=== PATIENT | female | born 1950 | race Caucasian/White ===

== ENCOUNTER 2017-11-15 08:56 | Emergency (ER) | payer MEDICARE, MEDICAID ==
[~2017-11-15] VITALS: Ht 545.9 cm; Wt 41.5 kg
[~2017-11-15 08:56] MED LIST: AMLO2.5T12 PO; CALCIUM PO; CHOL200026 PO; GING1POW PO; IPRA4AER IH; LISI40TA4 PO; OMEG-113 PO; PANT40TA4 PO; SUMA25TA35 PO; TURM538C PO; VITC500T PO; [UNRECOGNIZED DRUG - OTHER] PO
[2017-11-15 10:46] VITALS: BP 105/68
== END 2017-11-15 10:45 | disposition home or self-care (01) ==
LOC: ER 08:56
DX: K91.1 Postgastric surgery syndromes (principal); R19.7 Diarrhea, unspecified; F17.200 Nicotine dependence, unspecified, uncomplicated; I10 Essential (primary) hypertension; M19.90 Unspecified osteoarthritis, unspecified site; Z98.84 Bariatric surgery status; Z85.3 Personal history of malignant neoplasm of breast; Z79.899 Other long term (current) drug therapy
CPT/HCPCS: 99284

== ENCOUNTER 2017-11-15 20:29 | Inpatient (IN) | payer MEDICARE, MEDICAID ==
[~2017-11-15] VITALS: Ht 162.6 cm; Wt 41.2 kg
[2017-11-15] MEDS ORDERED: naloxone 2mg/2ml inj IM STA (20:56)
[2017-11-15] MEDS ORDERED: normal saline 1000ML IV soln IV ONE ×2 (21:00→22:40)
[2017-11-15 22:00] LABS: BASOPHILS % (AUTO) 0.1 % (0-1); EOSINOPHILS % (AUTO) 0 % (0-6); HEMATOCRIT 37.9 % (35.0-45.0); HEMOGLOBIN 12.2 g/dl (12.0-16.0); LYMPHOCYTES # (AUTO) 0.5 X10'3 (1.1-4.8); LYMPHOCYTES % (AUTO) 1.9 % (21-51); MEAN CORPUSCULAR HGB CONC 32.2 % (33.0-36.5); MEAN CORPUSCULAR VOLUME 93.1 FL (78-98); MEAN PLATELET VOLUME 7.2 FL (7.4-10.4); MONOCYTES # (AUTO) 0.9 X10'3 (0-0.9); MONOCYTES % (AUTO) 3.8 % (2-12); NEUTROPHILS # (AUTO) 22.7 X10'3 (1.8-7.7); NEUTROPHILS % (AUTO) 94.2 % (42-75); PLATELET COUNT 553 X10'3 (140-440); RED BLOOD COUNT 4.06 X10'6 (4.20-5.60); RED CELL DISTRIBUTION WIDTH 16.5 % (11.5-14.5); WHITE BLOOD COUNT 24.1 X10'3 (4.5-11.0)
[2017-11-15 22:08] LABS: INR 0.9 INR; PROTHROMBIN TIME 9.7 SECONDS (9.0-12.0)
[2017-11-15] MEDS ORDERED: levoFLOXACIN-Levaquin 750MG/D5 150 ML IV ONE (22:10)
[2017-11-15 22:21] LABS: ALANINE AMINOTRANSFERASE 101 U/L (12-78); ALBUMIN/GLOBULIN RATIO 0.7 (1.1-1.5); ALKALINE PHOSPHATASE 132 IU/L (46-116); ANION GAP 25 (8-16); ASPARTATE AMINO TRANSFERASE 191 U/L (10-37); BILIRUBIN,TOTAL 0.5 MG/DL (0.1-1.0); BLOOD UREA NITROGEN 83 MG/DL (7-18); BUN/CREATININE RATIO 37.4 (6.6-38.0); CALCIUM 7.7 MG/DL (8.5-10.1); CHLORIDE 98 MMOL/L (99-107); CREATININE 2.22 MG/DL (0.40-0.90); ETHANOL < 0.010 GM/DL (0.0-0.010); GLUCOSE 118 MG/DL (70-104); SODIUM 132 MMOL/L (135-145); TOTAL PROTEIN 7.3 G/DL (6.4-8.2); eGFR 22 ML/MIN
[2017-11-15 22:28] LABS: POTASSIUM 5.6 MMOL/L (3.5-5.1)
[2017-11-15 22:46] LABS: CLARITY,URINE SLIGHTLY CLOUDY (Clear); COLOR,URINE YELLOW (Yellow); GLUCOSE, URINE NEGATIVE (Neg); KETONES,URINE TRACE mg/dl (Neg); LEUKOCYTE ESTERASE ,URINE SMALL (Neg); NITRITES, URINE POSITIVE (Neg); OCCULT BLOOD,URINE MODERATE (Neg); PROTEIN,URINE 30 mg/dl (Neg); UROBILINOGEN,URINE 0.2 E.U/dL (0.2-1.0)
[2017-11-15 22:56] LABS: ABG BASE EXCESS -25.2 mmol/L (-2.0-3.0); ABG HCO3 4.6 mmol/L (22.0-26.0); ABG OXYGEN SATURATION 95.5 % (95-98); ABG PCO2 (T) 18.8 mmHg (32.0-45.0); ABG PO2 (T) 168.9 mmHg (83-108); FCOHb 0.3 % (0.5-1.5); FLOW 4 L/min; FMetHb 0.1 % (0.3-1.12); FO2Hb 95.1 % (94-100); PATIENT TEMPERATURE 35.8; TOTAL HEMOGLOBIN 10.1 G/dl (12.0-16.0)
[2017-11-15 23:05] LABS: URINE AMPHETAMINE SCREEN NEGATIVE (Neg); URINE BARBITUATE SCREEN NEGATIVE (Neg); URINE BENZODIAZEPINES SCREEN NEGATIVE (Neg); URINE CANNABINOID SCREEN NEGATIVE (Neg); URINE COCAINE SCREEN NEGATIVE (Neg); URINE METHADONE SCREEN NEGATIVE (Neg); URINE OPIATE SCREEN POSITIVE (Neg); URINE PHENCYCLIDINE SCREEN NEGATIVE (Neg)
[2017-11-15] MEDS ORDERED: sodium bicarbonate (8.4%) inj. 150 MEQ in sodium chloride 0.45% 1,000 ML IV SCH (23:05)
[2017-11-15 23:06] LABS: UA COLLECTION TYPE FOLEY CATH
[2017-11-15 23:08] LABS: WBC,URINE 50-100 /HPF (0-4)
[2017-11-15 23:09] LABS: BACTERIA,URINE 4+ /HPF (Neg); SQUAMOUS EPITHELIAL CELL,UR FEW /LPF (FEW); WBC CLUMPS,URINE FEW /HPF (NEGATIVE)
[2017-11-15] MEDS ORDERED: ipratropium/albuterol 3ml nebule NEB PRN (23:50)
[2017-11-15] MEDS ORDERED: acetaminophen 325mg tablet PO PRN (23:50)
[2017-11-15] MEDS ORDERED: ondansetron/PF 4mg/2ml inj IV PRN (23:50)
[2017-11-15] MEDS ORDERED: acetaminophen 650mg rectal suppository RC PRN (23:50)
[2017-11-15] MEDS ORDERED: sodium bicarbonate (8.4%) 1 mEq/ml syringe IV ONE (23:55)
[2017-11-15] MEDS ORDERED: vancomycin/NS 1 GM ADD-VANTAGE 250 ML IV ONE (23:55)
[2017-11-16] VITALS (22 sets, daily range): BP systolic 91–139; BP diastolic 52–89
[2017-11-16] MEDS ORDERED: sodium bicarbonate (8.4%) inj. 150 MEQ in sodium chloride 0.45% 1,000 ML IV SCH ×2
[2017-11-16] MEDS ORDERED: cefepime 1GM/NS ADD-VANTAGE 100 ML IV ONE ×2 (00:15)
[2017-11-16] MEDS ORDERED: vancomycin/NS 1 GM ADD-VANTAGE 250 ML IV ONE (00:15)
[2017-11-16 00:40] LABS: TROPONIN I 1.07 NG/ML (0.0-0.05)
[2017-11-16] MEDS ORDERED: heparin 10,000 units/1 ML INJ IV ONE (00:40)
[2017-11-16 02:10] LABS: BASOPHILS % (AUTO) 0 % (0-1); EOSINOPHILS % (AUTO) 0 % (0-6); HEMATOCRIT 32.5 % (35.0-45.0); HEMOGLOBIN 10.6 g/dl (12.0-16.0); LYMPHOCYTES # (AUTO) 0.4 X10'3 (1.1-4.8); LYMPHOCYTES % (AUTO) 2.1 % (21-51); MEAN CORPUSCULAR HEMOGLOBIN 30.5 PG (27.0-31.0); MEAN CORPUSCULAR HGB CONC 32.6 % (33.0-36.5); MEAN CORPUSCULAR VOLUME 93.6 FL (78-98); MEAN PLATELET VOLUME 6.9 FL (7.4-10.4); MONOCYTES # (AUTO) 1.1 X10'3 (0-0.9); MONOCYTES % (AUTO) 6.4 % (2-12); NEUTROPHILS % (AUTO) 91.5 % (42-75); PLATELET COUNT 499 X10'3 (140-440); RED BLOOD COUNT 3.48 X10'6 (4.20-5.60); RED CELL DISTRIBUTION WIDTH 16.4 % (11.5-14.5); WHITE BLOOD COUNT 17.5 X10'3 (4.5-11.0)
[2017-11-16] MEDS: famotidine/PF 10 mg/ml inj IV SCH ×3 (02:12→20:44)
[2017-11-16 02:25] LABS: INR 0.9 INR; PARTIAL THROMBOPLASTIN TIME 38 SECONDS (22-32); PROTHROMBIN TIME 9.5 SECONDS (9.0-12.0)
[2017-11-16] MEDS ORDERED: dextrose 50%-water 50ml dispensing syringe IV ONE (02:49)
[2017-11-16] MEDS ORDERED: dextrose 50%-water 50ml dispensing syringe IV PRN ×2 (02:50)
[2017-11-16] MEDS ORDERED: dextrose ORAL solution 15 GM/59 ML bottle PO PRN ×2 (02:50)
[2017-11-16] MEDS ORDERED: aspirin 81mg tab.chew PO ONE (02:50)
[2017-11-16] MEDS ORDERED: glucagon, human recombinant 1mg kit SUBCUT PRN (02:50)
[2017-11-16] MEDS: sodium bicarbonate (8.4%) inj. 150 MEQ in sodium chloride 0.45% 1,000 ML IV SCH ×2 (02:55→13:01)
[2017-11-16 03:12] LABS: ALANINE AMINOTRANSFERASE 75 U/L (12-78); ALBUMIN 2.4 G/DL (3.4-5.0); ALBUMIN/GLOBULIN RATIO 0.7 (1.1-1.5); ALKALINE PHOSPHATASE 116 IU/L (46-116); ANION GAP 24 (8-16); ASPARTATE AMINO TRANSFERASE 169 U/L (10-37); BILIRUBIN,TOTAL 0.4 MG/DL (0.1-1.0); BLOOD UREA NITROGEN 71 MG/DL (7-18); BUN/CREATININE RATIO 47.3 (6.6-38.0); CALCIUM 6.1 MG/DL (8.5-10.1); CHLORIDE 105 MMOL/L (99-107); GLUCOSE 87 MG/DL (70-104); MAGNESIUM 1.8 MG/DL (1.5-2.4); PHOSPHORUS 8.4 MG/DL (2.3-4.5); POTASSIUM 4.7 MMOL/L (3.5-5.1); SODIUM 137 MMOL/L (135-145); VANCOMYCIN,RANDOM 0.6 UG/ML; eGFR 35 ML/MIN
[2017-11-16 03:17] LABS: TOTAL CARBON DIOXIDE 7.7 MMOL/L (24-32)
[2017-11-16] MEDS ORDERED: sodium bicarbonate (8.4%) 1 mEq/ml syringe IV ONE ×2 (03:25→05:15)
[2017-11-16 05:01] LABS: ABG BASE EXCESS -17.3 mmol/L (-2.0-3.0); ABG HCO3 8.4 mmol/L (22.0-26.0); ABG OXYGEN SATURATION 94.5 % (95-98); ABG PCO2 (T) 19.7 mmHg (32.0-45.0); ABG PH (T) 7.242 (7.350-7.450); ABG PO2 (T) 101.4 mmHg (83-108); ALLEN'S TEST Positive; FCOHb 0.2 % (0.5-1.5); FMetHb 0.2 % (0.3-1.12); FO2Hb 94.1 % (94-100); PATIENT TEMPERATURE 36.2; RESPIRATORY RATE (OBSERVED) 20 b/min
[2017-11-16] MEDS ORDERED: calcium chloride inj. 1,000 MG in normal saline 100ml IV soln 90 ML IV ONE (06:15)
[2017-11-16 07:13] LABS: ALBUMIN 2.2 G/DL (3.4-5.0); ANION GAP 24 (8-16); BLOOD UREA NITROGEN 69 MG/DL (7-18); BUN/CREATININE RATIO 46.9 (6.6-38.0); CALCIUM 6.2 MG/DL (8.5-10.1); CHLORIDE 106 MMOL/L (99-107); CREATININE 1.47 MG/DL (0.40-0.90); GLUCOSE 135 MG/DL (70-104); PHOSPHORUS 6.9 MG/DL (2.3-4.5); POTASSIUM 4.3 MMOL/L (3.5-5.1); SODIUM 139 MMOL/L (135-145); eGFR 36 ML/MIN
[2017-11-16 07:19] LABS: TOTAL CARBON DIOXIDE 8.9 MMOL/L (24-32); TROPONIN I 5.18 NG/ML (0.0-0.05)
[2017-11-16] MEDS ORDERED: heparin, porcine 5000 units/ml vial SQ SCH (08:00)
[2017-11-16] MEDS ORDERED: cefepime 1GM/NS ADD-VANTAGE 100 ML IV SCH (08:00)
[2017-11-16] MEDS: aspirin 81mg tab.chew PO SCH (08:30)
[2017-11-16 09:28] LABS: C DIFF ANTIGEN NEGATIVE (NEGATIVE); C DIFF SPECIMEN=DIARRHEA? ACCEPTABLE; C DIFFICILE TOXINS A&B NEGATIVE (Neg)
[2017-11-16 11:21] LABS: ANION GAP 27 (8-16); CHLORIDE 107 MMOL/L (99-107); GLUCOSE 76 MG/DL (70-104); POTASSIUM 3.5 MMOL/L (3.5-5.1); SODIUM 146 MMOL/L (135-145)
[2017-11-16 11:22] LABS: ALBUMIN 2.1 G/DL (3.4-5.0); BLOOD UREA NITROGEN 62 MG/DL (7-18); BUN/CREATININE RATIO 52.1 (6.6-38.0); CALCIUM 6.7 MG/DL (8.5-10.1); CREATININE 1.19 MG/DL (0.40-0.90); PHOSPHORUS 4.9 MG/DL (2.3-4.5); eGFR 46 ML/MIN
[2017-11-16 11:23] LABS: TOTAL CARBON DIOXIDE 11.7 MMOL/L (24-32); TROPONIN I 11.77 NG/ML (0.0-0.05)
[2017-11-16 13:00] LABS: CHOL/HDL RATIO 2.3 (0.00-4.99); CHOLESTEROL 96 MG/DL (0-200); HDL CHOLESTEROL 41 MG/DL (35-60); LDL CHOLESTEROL 40 MG/DL (50-100); TRIGLYCERIDES 111 MG/DL (20-135)
[2017-11-16] MEDS: heparin 10,000 units/1 ML INJ IV PRN (16:44)
[2017-11-17] VITALS (21 sets, daily range): BP systolic 112–144; BP diastolic 60–95
[2017-11-17] MEDS: cefepime 1GM/NS ADD-VANTAGE 100 ML IV SCH ×2 (00:18→23:59)
[2017-11-17 00:35] LABS: ALANINE AMINOTRANSFERASE 55 U/L (12-78); ALBUMIN 1.8 G/DL (3.4-5.0); ALBUMIN/GLOBULIN RATIO 0.6 (1.1-1.5); ALKALINE PHOSPHATASE 84 IU/L (46-116); ANION GAP 18 (8-16); ASPARTATE AMINO TRANSFERASE 144 U/L (10-37); BILIRUBIN,TOTAL 0.4 MG/DL (0.1-1.0); BLOOD UREA NITROGEN 34 MG/DL (7-18); BUN/CREATININE RATIO 42.5 (6.6-38.0); CALCIUM 6.5 MG/DL (8.5-10.1); CHLORIDE 114 MMOL/L (99-107); GLUCOSE 136 MG/DL (70-104); MAGNESIUM 1.7 MG/DL (1.5-2.4); TOTAL CARBON DIOXIDE 23.1 MMOL/L (24-32); eGFR 72 ML/MIN
[2017-11-17 00:45] LABS: SODIUM 155 MMOL/L (135-145)
[2017-11-17] MEDS ORDERED: magnesium 4gm in 100ml NS 100 ML IV PRN (00:50)
[2017-11-17] MEDS ORDERED: potassium Cl 20 mEq SR tablet PO PRN ×2 (00:50)
[2017-11-17] MEDS: sodium bicarbonate (8.4%) inj. 150 MEQ in sodium chloride 0.45% 1,000 ML IV SCH (00:53)
[2017-11-17] MEDS ORDERED: sodium bicarbonate (8.4%) inj. 100 MEQ in dextrose 5%-water 1,000 ML IV SCH (00:55)
[2017-11-17] MEDS: magnesium 1gm/100ml D5W IVPB 100 ML IV PRN ×2 (00:58→03:24)
[2017-11-17] MEDS: potassium Cl 40MEQ/250ML bag 250 ML IV PRN ×2 (01:25→03:50)
[2017-11-17] MEDS: vancomycin/NS 1 GM ADD-VANTAGE 250 ML IV SCH (03:13)
[2017-11-17 03:51] LABS: BASOPHILS % (AUTO) 0.1 % (0-1); EOSINOPHILS % (AUTO) 0 % (0-6); HEMOGLOBIN 8.9 g/dl (12.0-16.0); LYMPHOCYTES # (AUTO) 0.6 X10'3 (1.1-4.8); LYMPHOCYTES % (AUTO) 9.1 % (21-51); MEAN CORPUSCULAR HEMOGLOBIN 29.9 PG (27.0-31.0); MEAN CORPUSCULAR VOLUME 90.5 FL (78-98); MEAN PLATELET VOLUME 6.5 FL (7.4-10.4); MONOCYTES # (AUTO) 0.8 X10'3 (0-0.9); MONOCYTES % (AUTO) 11.2 % (2-12); NEUTROPHILS # (AUTO) 5.5 X10'3 (1.8-7.7); NEUTROPHILS % (AUTO) 79.6 % (42-75); PLATELET COUNT 390 X10'3 (140-440); RED BLOOD COUNT 2.99 X10'6 (4.20-5.60); RED CELL DISTRIBUTION WIDTH 16.3 % (11.5-14.5); WHITE BLOOD COUNT 6.9 X10'3 (4.5-11.0)
[2017-11-17 04:06] LABS: ALANINE AMINOTRANSFERASE 55 U/L (12-78); ALBUMIN 1.9 G/DL (3.4-5.0); ALBUMIN/GLOBULIN RATIO 0.6 (1.1-1.5); ALKALINE PHOSPHATASE 83 IU/L (46-116); ANION GAP 9 (8-16); ASPARTATE AMINO TRANSFERASE 139 U/L (10-37); BILIRUBIN,TOTAL 0.3 MG/DL (0.1-1.0); BLOOD UREA NITROGEN 31 MG/DL (7-18); BUN/CREATININE RATIO 41.3 (6.6-38.0); CALCIUM 6.7 MG/DL (8.5-10.1); CHLORIDE 117 MMOL/L (99-107); CREATININE 0.75 MG/DL (0.40-0.90); GLUCOSE 151 MG/DL (70-104); MAGNESIUM 2.2 MG/DL (1.5-2.4); PHOSPHORUS 1.9 MG/DL (2.3-4.5); POTASSIUM 3.7 MMOL/L (3.5-5.1); SODIUM 153 MMOL/L (135-145); TOTAL CARBON DIOXIDE 27.1 MMOL/L (24-32); TOTAL PROTEIN 4.9 G/DL (6.4-8.2); VANCOMYCIN,RANDOM 5.9 UG/ML; eGFR 78 ML/MIN
[2017-11-17 04:36] LABS: TROPONIN I 10.11 NG/ML (0.0-0.05)
[2017-11-17] MEDS ORDERED: sodium phosphate inj. 30 MMOL in dextrose 5%-water 250 ML IV PRN (06:40)
[2017-11-17] MEDS ORDERED: Neutra Phos packet PO PRN (06:40)
[2017-11-17] MEDS ORDERED: sodium phosphate inj. 15 MMOL in dextrose 5%-water 150 ML IV PRN (06:40)
[2017-11-17] MEDS: aspirin 81mg tab.chew PO SCH (08:30)
[2017-11-17] MEDS: potassium phosphate inj 15 MMOL in dextrose 5%-water 150 ML IV PRN (08:37)
[2017-11-17] MEDS: famotidine/PF 10 mg/ml inj IV SCH ×2 (08:51→20:17)
[2017-11-17] MEDS ORDERED: LORazepam 2 mg/ml vial IV STA (11:13)
[2017-11-17] MEDS ORDERED: LORazepam 2 mg/ml vial ONE (11:19)
[2017-11-17] MEDS ORDERED: LORazepam 2 mg/ml vial IV ONE (11:20)
[2017-11-17] MEDS: dextrose 5%-water 1,000 ML IV SCH ×2 (12:41→23:59)
[2017-11-17 14:46] LABS: BASOPHILS % (AUTO) 0.3 % (0-1); EOSINOPHILS % (AUTO) 0 % (0-6); HEMATOCRIT 25.7 % (35.0-45.0); HEMOGLOBIN 8.5 g/dl (12.0-16.0); MEAN CORPUSCULAR HEMOGLOBIN 29.9 PG (27.0-31.0); MEAN CORPUSCULAR HGB CONC 33.1 % (33.0-36.5); MEAN CORPUSCULAR VOLUME 90.2 FL (78-98); MEAN PLATELET VOLUME 6.6 FL (7.4-10.4); MONOCYTES # (AUTO) 0.8 X10'3 (0-0.9); MONOCYTES % (AUTO) 12.2 % (2-12); NEUTROPHILS % (AUTO) 73.5 % (42-75); PLATELET COUNT 358 X10'3 (140-440); RED BLOOD COUNT 2.84 X10'6 (4.20-5.60); RED CELL DISTRIBUTION WIDTH 16.6 % (11.5-14.5); WHITE BLOOD COUNT 6.8 X10'3 (4.5-11.0)
[2017-11-17 14:55] LABS: ALBUMIN 1.9 G/DL (3.4-5.0); ANION GAP 8 (8-16); BLOOD UREA NITROGEN 18 MG/DL (7-18); BUN/CREATININE RATIO 26.9 (6.6-38.0); CALCIUM 6.7 MG/DL (8.5-10.1); CHLORIDE 115 MMOL/L (99-107); CREATININE 0.67 MG/DL (0.40-0.90); GLUCOSE 176 MG/DL (70-104); MAGNESIUM 2.3 MG/DL (1.5-2.4); SODIUM 153 MMOL/L (135-145); eGFR 88 ML/MIN
[2017-11-17 15:36] LABS: PHOSPHORUS 1.8 MG/DL (2.3-4.5)
[2017-11-17] MEDS: heparin 10,000 units/1 ML INJ IV PRN (16:30)
[2017-11-17] MEDS: lactobacillus rhamnosus 10,000 MMU CELLS/CAPSULE PO SCH (20:00)
[2017-11-18] VITALS (24 sets, daily range): BP systolic 122–165; BP diastolic 74–104
[2017-11-18 01:26] LABS: PROTHROMBIN TIME 9.9 SECONDS (9.0-12.0)
[2017-11-18] MEDS: vancomycin/NS 1 GM ADD-VANTAGE 250 ML IV SCH (02:15)
[2017-11-18 03:22] LABS: BASOPHILS % (AUTO) 0.2 % (0-1); EOSINOPHILS # (AUTO) 0.1 X10'3 (0-0.9); EOSINOPHILS % (AUTO) 1.4 % (0-6); HEMATOCRIT 23.5 % (35.0-45.0); HEMOGLOBIN 7.7 g/dl (12.0-16.0); LYMPHOCYTES # (AUTO) 1.3 X10'3 (1.1-4.8); LYMPHOCYTES % (AUTO) 20.6 % (21-51); MEAN CORPUSCULAR HEMOGLOBIN 30.1 PG (27.0-31.0); MEAN CORPUSCULAR HGB CONC 32.9 % (33.0-36.5); MEAN CORPUSCULAR VOLUME 91.4 FL (78-98); MEAN PLATELET VOLUME 6.6 FL (7.4-10.4); MONOCYTES # (AUTO) 0.6 X10'3 (0-0.9); MONOCYTES % (AUTO) 10.1 % (2-12); NEUTROPHILS # (AUTO) 4.3 X10'3 (1.8-7.7); NEUTROPHILS % (AUTO) 67.7 % (42-75); PLATELET COUNT 298 X10'3 (140-440); RED BLOOD COUNT 2.57 X10'6 (4.20-5.60); RED CELL DISTRIBUTION WIDTH 16.9 % (11.5-14.5); WHITE BLOOD COUNT 6.3 X10'3 (4.5-11.0)
[2017-11-18 03:46] LABS: ANION GAP 5 (8-16); BLOOD UREA NITROGEN 9 MG/DL (7-18); BUN/CREATININE RATIO 14.5 (6.6-38.0); CALCIUM 6.1 MG/DL (8.5-10.1); CHLORIDE 112 MMOL/L (99-107); CREATININE 0.62 MG/DL (0.40-0.90); GLUCOSE 143 MG/DL (70-104); MAGNESIUM 2.1 MG/DL (1.5-2.4); PHOSPHORUS 3.6 MG/DL (2.3-4.5); POTASSIUM 3.2 MMOL/L (3.5-5.1); SODIUM 149 MMOL/L (135-145); TOTAL CARBON DIOXIDE 31.6 MMOL/L (24-32); TOTAL PROTEIN 4.7 G/DL (6.4-8.2); eGFR > 90 ML/MIN
[2017-11-18 03:47] LABS: ALANINE AMINOTRANSFERASE 53 U/L (12-78); ALBUMIN 1.8 G/DL (3.4-5.0); ALBUMIN/GLOBULIN RATIO 0.6 (1.1-1.5); ALKALINE PHOSPHATASE 66 IU/L (46-116); ASPARTATE AMINO TRANSFERASE 99 U/L (10-37)
[2017-11-18] MEDS: potassium Cl 40MEQ/250ML bag 250 ML IV PRN (04:33)
[2017-11-18 04:41] LABS: BILIRUBIN,TOTAL 0.1 MG/DL (0.1-1.0)
[2017-11-18] MEDS: lactobacillus rhamnosus 10,000 MMU CELLS/CAPSULE PO SCH ×2 (08:00→20:00)
[2017-11-18] MEDS: famotidine/PF 10 mg/ml inj IV SCH ×2 (08:26→20:12)
[2017-11-18] MEDS: heparin 10,000 units/1 ML INJ IV PRN (08:29)
[2017-11-18] MEDS: aspirin 81mg tab.chew PO SCH (08:30)
[2017-11-18 13:31] LABS: ALBUMIN 1.9 G/DL (3.4-5.0); ANION GAP 4 (8-16); BLOOD UREA NITROGEN 7 MG/DL (7-18); BUN/CREATININE RATIO 12.1 (6.6-38.0); CHLORIDE 107 MMOL/L (99-107); CREATININE 0.58 MG/DL (0.40-0.90); GLUCOSE 273 MG/DL (70-104); POTASSIUM 3.7 MMOL/L (3.5-5.1); SODIUM 142 MMOL/L (135-145); TOTAL CARBON DIOXIDE 31.1 MMOL/L (24-32); eGFR > 90 ML/MIN
[2017-11-18] MEDS ORDERED: calcium chloride inj. 1,000 MG in normal saline 100ml IV soln 90 ML IV ONE (14:00)
[2017-11-18 14:16] LABS: % IRON SATURATION 39 % (11-46); IRON 70 UG/DL (49-151); TOTAL IRON BINDING CAPACITY 179 UG/DL (259-388)
[2017-11-18 15:31] LABS: OCCULT BLOOD STOOL NEGATIVE (Neg)
[2017-11-18] MEDS: dextrose 5%-water 1,000 ML IV SCH (17:46)
[2017-11-19] VITALS (27 sets, daily range): BP systolic 135–162; BP diastolic 80–101
[2017-11-19] MEDS: cefepime 1GM/NS ADD-VANTAGE 100 ML IV SCH
[2017-11-19] MEDS: morphine 4 MG/ML inj SYRINge IV PRN ×3 (00:18→17:05)
[2017-11-19] MEDS ORDERED: VANCOMYCIN LEVEL IV ONE (01:30)
[2017-11-19 01:35] LABS: BASOPHILS % (AUTO) 0.5 % (0-1); EOSINOPHILS # (AUTO) 0.1 X10'3 (0-0.9); EOSINOPHILS % (AUTO) 1.4 % (0-6); HEMATOCRIT 25.3 % (35.0-45.0); HEMOGLOBIN 8.4 g/dl (12.0-16.0); LYMPHOCYTES # (AUTO) 1.4 X10'3 (1.1-4.8); LYMPHOCYTES % (AUTO) 17.6 % (21-51); MEAN CORPUSCULAR HEMOGLOBIN 30.7 PG (27.0-31.0); MEAN CORPUSCULAR VOLUME 93.1 FL (78-98); MEAN PLATELET VOLUME 6.8 FL (7.4-10.4); MONOCYTES # (AUTO) 0.6 X10'3 (0-0.9); MONOCYTES % (AUTO) 7.4 % (2-12); NEUTROPHILS # (AUTO) 5.8 X10'3 (1.8-7.7); NEUTROPHILS % (AUTO) 73.1 % (42-75); PLATELET COUNT 269 X10'3 (140-440); RED BLOOD COUNT 2.72 X10'6 (4.20-5.60); RED CELL DISTRIBUTION WIDTH 15.3 % (11.5-14.5); WHITE BLOOD COUNT 7.9 X10'3 (4.5-11.0)
[2017-11-19 01:42] LABS: PROTHROMBIN TIME 9.9 SECONDS (9.0-12.0)
[2017-11-19 01:47] LABS: ALANINE AMINOTRANSFERASE 61 U/L (12-78); ALBUMIN/GLOBULIN RATIO 0.7 (1.1-1.5); ALKALINE PHOSPHATASE 77 IU/L (46-116); ANION GAP 3 (8-16); ASPARTATE AMINO TRANSFERASE 78 U/L (10-37); BILIRUBIN,TOTAL 0.3 MG/DL (0.1-1.0); BLOOD UREA NITROGEN 7 MG/DL (7-18); BUN/CREATININE RATIO 12.5 (6.6-38.0); CALCIUM 7.2 MG/DL (8.5-10.1); CHLORIDE 104 MMOL/L (99-107); CREATININE 0.56 MG/DL (0.40-0.90); GLUCOSE 129 MG/DL (70-104); POTASSIUM 3.4 MMOL/L (3.5-5.1); SODIUM 140 MMOL/L (135-145); TOTAL CARBON DIOXIDE 32.7 MMOL/L (24-32); eGFR > 90 ML/MIN
[2017-11-19 01:48] LABS: MAGNESIUM 1.5 MG/DL (1.5-2.4); PHOSPHORUS 1.7 MG/DL (2.3-4.5); VANCOMYCIN,TROUGH 8.1 UG/ML (6.0-14.0)
[2017-11-19] MEDS: vancomycin/NS 1 GM ADD-VANTAGE 250 ML IV SCH (02:13)
[2017-11-19] MEDS: potassium phosphate inj 15 MMOL in dextrose 5%-water 150 ML IV PRN (02:47)
[2017-11-19] MEDS: potassium Cl 40MEQ/250ML bag 250 ML IV PRN (05:38)
[2017-11-19] MEDS: famotidine/PF 10 mg/ml inj IV SCH ×2 (07:43→21:31)
[2017-11-19] MEDS: aspirin 81mg tab.chew PO SCH (07:43)
[2017-11-19] MEDS: lactobacillus rhamnosus 10,000 MMU CELLS/CAPSULE PO SCH ×2 (07:43→21:31)
[2017-11-19] MEDS: heparin 10,000 units/1 ML INJ IV PRN (08:21)
[2017-11-19] MEDS: dextrose 5%-water 1,000 ML IV SCH ×2 (09:55→15:22)
[2017-11-19] MEDS ORDERED: vancomycin/NS 1 GM ADD-VANTAGE 250 ML IV SCH (14:00)
[2017-11-19 14:07] LABS: MAGNESIUM 1.4 MG/DL (1.5-2.4); PHOSPHORUS 2.3 MG/DL (2.3-4.5); POTASSIUM 3.9 MMOL/L (3.5-5.1)
[2017-11-19] MEDS ORDERED: CAFFEINE CITRATE 60 MG/3 ML injection vial IV PRN (15:35)
[2017-11-19] MEDS ORDERED: regadenoson 0.4mg/5ml syringe IV PRN (15:35)
[2017-11-19] MEDS ORDERED: metoprolol tartrate 1mg/ml inj IV PRN (15:35)
[2017-11-19] MEDS ORDERED: nitroGLYCERIN 0.4mg SUBLingual tab SL PRN (15:35)
[2017-11-20] VITALS (31 sets, daily range): BP systolic 108–150; BP diastolic 71–107
[2017-11-20] MEDS: cefepime 1GM/NS ADD-VANTAGE 100 ML IV SCH (00:18)
[2017-11-20] MEDS: dextrose 5%-water 1,000 ML IV SCH ×2 (00:19→17:10)
[2017-11-20 02:40] LABS: BASOPHILS % (AUTO) 0.3 % (0-1); EOSINOPHILS # (AUTO) 0.1 X10'3 (0-0.9); EOSINOPHILS % (AUTO) 1.8 % (0-6); HEMATOCRIT 27.9 % (35.0-45.0); LYMPHOCYTES # (AUTO) 1.1 X10'3 (1.1-4.8); LYMPHOCYTES % (AUTO) 13.8 % (21-51); MEAN CORPUSCULAR HGB CONC 32.2 % (33.0-36.5); MEAN CORPUSCULAR VOLUME 93.2 FL (78-98); MEAN PLATELET VOLUME 6.4 FL (7.4-10.4); MONOCYTES # (AUTO) 0.6 X10'3 (0-0.9); MONOCYTES % (AUTO) 8.2 % (2-12); NEUTROPHILS % (AUTO) 75.9 % (42-75); PLATELET COUNT 297 X10'3 (140-440); RED CELL DISTRIBUTION WIDTH 16.3 % (11.5-14.5); WHITE BLOOD COUNT 7.9 X10'3 (4.5-11.0)
[2017-11-20 05:10] LABS: INR 0.9 INR; PROTHROMBIN TIME 9.7 SECONDS (9.0-12.0)
[2017-11-20 05:20] LABS: ALANINE AMINOTRANSFERASE 48 U/L (12-78); ALBUMIN 1.9 G/DL (3.4-5.0); ALBUMIN/GLOBULIN RATIO 0.6 (1.1-1.5); ALKALINE PHOSPHATASE 92 IU/L (46-116); ANION GAP 6 (8-16); ASPARTATE AMINO TRANSFERASE 53 U/L (10-37); BILIRUBIN,TOTAL 0.3 MG/DL (0.1-1.0); BLOOD UREA NITROGEN 9 MG/DL (7-18); BUN/CREATININE RATIO 15.3 (6.6-38.0); CALCIUM 7.2 MG/DL (8.5-10.1); CHLORIDE 101 MMOL/L (99-107); CREATININE 0.59 MG/DL (0.40-0.90); GLUCOSE 137 MG/DL (70-104); MAGNESIUM 1.6 MG/DL (1.5-2.4); PHOSPHORUS 2.7 MG/DL (2.3-4.5); SODIUM 139 MMOL/L (135-145); TOTAL CARBON DIOXIDE 31.9 MMOL/L (24-32); TOTAL PROTEIN 5.1 G/DL (6.4-8.2); VANCOMYCIN,RANDOM 13.8 UG/ML; eGFR > 90 ML/MIN
[2017-11-20] MEDS: heparin 10,000 units/1 ML INJ IV PRN ×3 (05:47→21:42)
[2017-11-20] MEDS: lactobacillus rhamnosus 10,000 MMU CELLS/CAPSULE PO SCH ×2 (07:52→20:08)
[2017-11-20] MEDS: aspirin 81mg tab.chew PO SCH (07:52)
[2017-11-20] MEDS: famotidine/PF 10 mg/ml inj IV SCH ×2 (07:52→20:08)
[2017-11-20] MEDS ORDERED: regadenoson 0.4mg/5ml syringe IV ONE (11:22)
[2017-11-20] MEDS ORDERED: CAFFEINE CITRATE 60 MG/3 ML injection vial IV ONE (11:22)
[2017-11-20] MEDS ORDERED: VANCOMYCIN LEVEL IV ONE (13:30)
[2017-11-21] VITALS (10 sets, daily range): BP systolic 103–154; BP diastolic 62–102
[2017-11-21] MEDS: cefepime 1GM/NS ADD-VANTAGE 100 ML IV SCH (00:06)
[2017-11-21 02:47] LABS: BASOPHILS # (AUTO) 0.1 X10'3 (0-0.2); BASOPHILS % (AUTO) 0.7 % (0-1); EOSINOPHILS # (AUTO) 0.3 X10'3 (0-0.9); HEMATOCRIT 27.8 % (35.0-45.0); HEMOGLOBIN 8.9 g/dl (12.0-16.0); LYMPHOCYTES # (AUTO) 1.5 X10'3 (1.1-4.8); LYMPHOCYTES % (AUTO) 16.9 % (21-51); MEAN CORPUSCULAR HEMOGLOBIN 30.1 PG (27.0-31.0); MEAN CORPUSCULAR HGB CONC 32.2 % (33.0-36.5); MEAN CORPUSCULAR VOLUME 93.5 FL (78-98); MEAN PLATELET VOLUME 6.9 FL (7.4-10.4); MONOCYTES % (AUTO) 11.7 % (2-12); NEUTROPHILS # (AUTO) 6.1 X10'3 (1.8-7.7); NEUTROPHILS % (AUTO) 67.7 % (42-75); PLATELET COUNT 289 X10'3 (140-440); RED BLOOD COUNT 2.98 X10'6 (4.20-5.60); RED CELL DISTRIBUTION WIDTH 16.5 % (11.5-14.5)
[2017-11-21 02:59] LABS: PROTHROMBIN TIME 9.9 SECONDS (9.0-12.0)
[2017-11-21 03:02] LABS: PARTIAL THROMBOPLASTIN TIME 70 SECONDS (22-32)
[2017-11-21 03:05] LABS: ALANINE AMINOTRANSFERASE 38 U/L (12-78); ALBUMIN/GLOBULIN RATIO 0.6 (1.1-1.5); ALKALINE PHOSPHATASE 92 IU/L (46-116); ANION GAP 0 (8-16); ASPARTATE AMINO TRANSFERASE 39 U/L (10-37); BILIRUBIN,TOTAL 0.3 MG/DL (0.1-1.0); BLOOD UREA NITROGEN 10 MG/DL (7-18); BUN/CREATININE RATIO 17.5 (6.6-38.0); CALCIUM 7.7 MG/DL (8.5-10.1); CHLORIDE 102 MMOL/L (99-107); CREATININE 0.57 MG/DL (0.40-0.90); GLUCOSE 105 MG/DL (70-104); MAGNESIUM 1.5 MG/DL (1.5-2.4); PHOSPHORUS 2.3 MG/DL (2.3-4.5); POTASSIUM 4.3 MMOL/L (3.5-5.1); SODIUM 135 MMOL/L (135-145); TOTAL PROTEIN 5.4 G/DL (6.4-8.2); VANCOMYCIN,RANDOM 5.5 UG/ML; eGFR > 90 ML/MIN
[2017-11-21] MEDS: lactobacillus rhamnosus 10,000 MMU CELLS/CAPSULE PO SCH ×2 (09:14→20:42)
[2017-11-21] MEDS: famotidine/PF 10 mg/ml inj IV SCH (09:15)
[2017-11-21] MEDS ORDERED: captoPRIL 25mg tablet PO SCH (11:00)
[2017-11-21] MEDS: aspirin 81mg tablet.DR PO SCH (12:06)
[2017-11-21] MEDS ORDERED: potassium Cl 40MEQ/NS 500ml 500 ML IV PRN ×2 (13:05)
[2017-11-21] MEDS: carVEDilol 3.125mg tablet PO SCH (20:41)
[2017-11-22] MEDS: cefepime 1GM/NS ADD-VANTAGE 100 ML IV SCH (00:37)
[2017-11-22] MEDS: Melatonin 3mg tablet PO PRN (00:37)
[2017-11-22 06:00] VITALS: BP 143/86
[2017-11-22 06:03] LABS: BASOPHILS # (AUTO) 0.1 X10'3 (0-0.2); BASOPHILS % (AUTO) 0.5 % (0-1); EOSINOPHILS # (AUTO) 0.3 X10'3 (0-0.9); EOSINOPHILS % (AUTO) 3.1 % (0-6); HEMATOCRIT 25.6 % (35.0-45.0); HEMOGLOBIN 8.3 g/dl (12.0-16.0); LYMPHOCYTES # (AUTO) 1.2 X10'3 (1.1-4.8); LYMPHOCYTES % (AUTO) 12.4 % (21-51); MEAN CORPUSCULAR HEMOGLOBIN 30.4 PG (27.0-31.0); MEAN CORPUSCULAR HGB CONC 32.3 % (33.0-36.5); MEAN CORPUSCULAR VOLUME 94.2 FL (78-98); MEAN PLATELET VOLUME 7.4 FL (7.4-10.4); MONOCYTES # (AUTO) 1.3 X10'3 (0-0.9); MONOCYTES % (AUTO) 13.1 % (2-12); NEUTROPHILS # (AUTO) 7.1 X10'3 (1.8-7.7); NEUTROPHILS % (AUTO) 70.9 % (42-75); PLATELET COUNT 263 X10'3 (140-440); RED BLOOD COUNT 2.72 X10'6 (4.20-5.60); RED CELL DISTRIBUTION WIDTH 15.6 % (11.5-14.5)
[2017-11-22 06:05] LABS: ALANINE AMINOTRANSFERASE 36 U/L (12-78); ALBUMIN/GLOBULIN RATIO 0.6 (1.1-1.5); ALKALINE PHOSPHATASE 79 IU/L (46-116); ANION GAP 4 (8-16); ASPARTATE AMINO TRANSFERASE 30 U/L (10-37); BILIRUBIN,TOTAL 0.2 MG/DL (0.1-1.0); BLOOD UREA NITROGEN 10 MG/DL (7-18); BUN/CREATININE RATIO 17.5 (6.6-38.0); CALCIUM 8.3 MG/DL (8.5-10.1); CHLORIDE 105 MMOL/L (99-107); CREATININE 0.57 MG/DL (0.40-0.90); GLUCOSE 100 MG/DL (70-104); MAGNESIUM 1.8 MG/DL (1.5-2.4); PHOSPHORUS 2.8 MG/DL (2.3-4.5); POTASSIUM 4.2 MMOL/L (3.5-5.1); SODIUM 138 MMOL/L (135-145); TOTAL CARBON DIOXIDE 29.3 MMOL/L (24-32); TOTAL PROTEIN 5.3 G/DL (6.4-8.2); eGFR > 90 ML/MIN
[2017-11-22] MEDS: lactobacillus rhamnosus 10,000 MMU CELLS/CAPSULE PO SCH ×2 (07:04→20:45)
[2017-11-22] MEDS: lisinopril 20mg tablet PO SCH (07:04)
[2017-11-22] MEDS: carVEDilol 3.125mg tablet PO SCH ×2 (07:04→20:45)
[2017-11-22] MEDS: aspirin 81mg tablet.DR PO SCH (07:38)
[2017-11-22] MEDS ORDERED: enoxaparin 40mg/0.4ml syringe SUBCUT SCH (08:00)
[2017-11-22 11:00] VITALS: BP 129/78
[2017-11-22] MEDS: acetaminophen 325mg tablet PO PRN (13:37)
[2017-11-22 15:00] VITALS: BP 140/78
[2017-11-22 19:00] VITALS: BP 152/86
[2017-11-22] MEDS: apixaban 5mg tablet PO SCH (20:45)
[2017-11-22 23:00] VITALS: BP_SYST 105; BP_SYST 133; BP_DIAS 44; BP_DIAS 75
[2017-11-23] MEDS: cefepime 1GM/NS ADD-VANTAGE 100 ML IV SCH (00:18)
[2017-11-23] MEDS: Melatonin 3mg tablet PO PRN (00:18)
[2017-11-23 03:00] VITALS: BP_SYST 103; BP_SYST 105; BP_DIAS 44
[2017-11-23 06:00] LABS: BASOPHILS % (AUTO) 0.4 % (0-1); EOSINOPHILS # (AUTO) 0.2 X10'3 (0-0.9); EOSINOPHILS % (AUTO) 2.5 % (0-6); HEMATOCRIT 24.5 % (35.0-45.0); HEMOGLOBIN 7.9 g/dl (12.0-16.0); LYMPHOCYTES # (AUTO) 1.5 X10'3 (1.1-4.8); LYMPHOCYTES % (AUTO) 17.3 % (21-51); MEAN CORPUSCULAR HEMOGLOBIN 30.2 PG (27.0-31.0); MEAN CORPUSCULAR HGB CONC 32.4 % (33.0-36.5); MEAN CORPUSCULAR VOLUME 93.2 FL (78-98); MEAN PLATELET VOLUME 7.5 FL (7.4-10.4); MONOCYTES # (AUTO) 1.3 X10'3 (0-0.9); MONOCYTES % (AUTO) 15.4 % (2-12); NEUTROPHILS # (AUTO) 5.6 X10'3 (1.8-7.7); NEUTROPHILS % (AUTO) 64.4 % (42-75); PLATELET COUNT 265 X10'3 (140-440); RED BLOOD COUNT 2.63 X10'6 (4.20-5.60); RED CELL DISTRIBUTION WIDTH 16.4 % (11.5-14.5); WHITE BLOOD COUNT 8.8 X10'3 (4.5-11.0)
[2017-11-23 06:13] LABS: ALANINE AMINOTRANSFERASE 25 U/L (12-78); ALBUMIN/GLOBULIN RATIO 0.6 (1.1-1.5); ALKALINE PHOSPHATASE 71 IU/L (46-116); ANION GAP 8 (8-16); ASPARTATE AMINO TRANSFERASE 26 U/L (10-37); BILIRUBIN,TOTAL 0.2 MG/DL (0.1-1.0); BLOOD UREA NITROGEN 18 MG/DL (7-18); BUN/CREATININE RATIO 26.5 (6.6-38.0); CALCIUM 8.2 MG/DL (8.5-10.1); CHLORIDE 105 MMOL/L (99-107); CREATININE 0.68 MG/DL (0.40-0.90); GLUCOSE 98 MG/DL (70-104); MAGNESIUM 1.4 MG/DL (1.5-2.4); PHOSPHORUS 3.2 MG/DL (2.3-4.5); SODIUM 140 MMOL/L (135-145); TOTAL CARBON DIOXIDE 27.5 MMOL/L (24-32); TOTAL PROTEIN 5.3 G/DL (6.4-8.2); eGFR 87 ML/MIN
[2017-11-23 07:00] VITALS: BP 125/73
[2017-11-23] MEDS: apixaban 5mg tablet PO SCH ×2 (08:00→20:30)
[2017-11-23] MEDS: lactobacillus rhamnosus 10,000 MMU CELLS/CAPSULE PO SCH ×2 (09:37→20:30)
[2017-11-23] MEDS: aspirin 81mg tablet.DR PO SCH (09:37)
[2017-11-23] MEDS: carVEDilol 3.125mg tablet PO SCH ×2 (09:38→20:30)
[2017-11-23] MEDS: lisinopril 20mg tablet PO SCH (09:38)
[2017-11-23 11:00] VITALS: BP 138/79
[2017-11-23 15:00] VITALS: BP 144/83
[2017-11-23] MEDS ORDERED: epoetin 20,000 units/ml inj IV ONE (15:35)
[2017-11-23 19:00] VITALS: BP 139/89
[2017-11-23 23:00] VITALS: BP 137/82
[2017-11-24] MEDS: Melatonin 3mg tablet PO PRN (00:10)
[2017-11-24] MEDS: cefepime 1GM/NS ADD-VANTAGE 100 ML IV SCH (00:10)
[2017-11-24] MEDS: acetaminophen 325mg tablet PO PRN (00:12)
[2017-11-24 03:00] VITALS: BP 133/75
[2017-11-24 05:56] LABS: BASOPHILS # (AUTO) 0.1 X10'3 (0-0.2); BASOPHILS % (AUTO) 0.5 % (0-1); EOSINOPHILS # (AUTO) 0.2 X10'3 (0-0.9); EOSINOPHILS % (AUTO) 2.2 % (0-6); HEMATOCRIT 24.1 % (35.0-45.0); HEMOGLOBIN 7.8 g/dl (12.0-16.0); LYMPHOCYTES # (AUTO) 1.8 X10'3 (1.1-4.8); LYMPHOCYTES % (AUTO) 16.4 % (21-51); MEAN CORPUSCULAR HEMOGLOBIN 30.2 PG (27.0-31.0); MEAN CORPUSCULAR HGB CONC 32.2 % (33.0-36.5); MEAN CORPUSCULAR VOLUME 93.6 FL (78-98); MEAN PLATELET VOLUME 7.7 FL (7.4-10.4); MONOCYTES # (AUTO) 1.7 X10'3 (0-0.9); MONOCYTES % (AUTO) 15.3 % (2-12); NEUTROPHILS # (AUTO) 7.1 X10'3 (1.8-7.7); NEUTROPHILS % (AUTO) 65.6 % (42-75); PLATELET COUNT 266 X10'3 (140-440); RED BLOOD COUNT 2.58 X10'6 (4.20-5.60); RED CELL DISTRIBUTION WIDTH 16.6 % (11.5-14.5); WHITE BLOOD COUNT 10.8 X10'3 (4.5-11.0)
[2017-11-24 06:04] LABS: ALANINE AMINOTRANSFERASE 27 U/L (12-78); ALBUMIN/GLOBULIN RATIO 0.6 (1.1-1.5); ALKALINE PHOSPHATASE 72 IU/L (46-116); ANION GAP 8 (8-16); ASPARTATE AMINO TRANSFERASE 21 U/L (10-37); BILIRUBIN,TOTAL 0.1 MG/DL (0.1-1.0); BLOOD UREA NITROGEN 21 MG/DL (7-18); BUN/CREATININE RATIO 31.3 (6.6-38.0); CALCIUM 8.6 MG/DL (8.5-10.1); CHLORIDE 106 MMOL/L (99-107); CREATININE 0.67 MG/DL (0.40-0.90); GLUCOSE 97 MG/DL (70-104); MAGNESIUM 1.6 MG/DL (1.5-2.4); PHOSPHORUS 3.6 MG/DL (2.3-4.5); POTASSIUM 3.9 MMOL/L (3.5-5.1); SODIUM 141 MMOL/L (135-145); TOTAL CARBON DIOXIDE 27.3 MMOL/L (24-32); TOTAL PROTEIN 5.3 G/DL (6.4-8.2); eGFR 88 ML/MIN
[2017-11-24 06:56] VITALS: BP 116/65
[2017-11-24] MEDS: carVEDilol 3.125mg tablet PO SCH (08:12)
[2017-11-24] MEDS: lisinopril 20mg tablet PO SCH (08:12)
[2017-11-24] MEDS: lactobacillus rhamnosus 10,000 MMU CELLS/CAPSULE PO SCH (08:12)
[2017-11-24] MEDS: aspirin 81mg tablet.DR PO SCH (08:12)
[2017-11-24] MEDS: apixaban 5mg tablet PO SCH (08:12)
[2017-11-24 11:00] VITALS: BP 128/83
[2017-11-24] MEDS ORDERED: LACT1CAP26 PO (14:43)
[2017-11-24] MEDS ORDERED: APIX5TAB3 PO (14:43)
[2017-11-24] MEDS ORDERED: COR3.125T PO (14:46)
[2017-11-24] MEDS ORDERED: ASPI-1071 PO (14:46)
[2017-11-24 15:00] VITALS: BP 140/95
== END 2017-11-24 18:10 | disposition home health service (06) | DRG 871 ==
LOC: ER 20:29 → ED HOLD 23:48 → CICU 2S 11-16 00:30 → ICU 2S 11-17 04:58 → PCU 3S 11-21 12:59
PROVIDERS: ADMIT Internal Medicine Critical Care Medicine; ATTEND Internal Medicine Critical Care Medicine
PROC: 02HV33Z Insertion of Infusion Device into Superior Vena Cava, Percutaneous Approach (ICD-10-PCS; 2017-11-16)
PROC: B548ZZA Ultrasonography of Superior Vena Cava, Guidance (ICD-10-PCS; 2017-11-16)
PROC: 4A02XM4 Measurement of Cardiac Total Activity, External Approach (ICD-10-PCS; principal; 2017-11-20)
PROC: 3E033HZ Introduction of Radioactive Substance into Peripheral Vein, Percutaneous Approach (ICD-10-PCS; 2017-11-20)
DX: A41.51 Sepsis due to Escherichia coli [E. coli] (principal); G92 Toxic encephalopathy; I21.4 Non-ST elevation (NSTEMI) myocardial infarction; K83.1 Obstruction of bile duct; N17.9 Acute kidney failure, unspecified; Z68.1 Body mass index [BMI] 19.9 or less, adult; I48.92 Unspecified atrial flutter; N30.01 Acute cystitis with hematuria; E87.0 Hyperosmolality and hypernatremia; D64.9 Anemia, unspecified; E83.51 Hypocalcemia; E87.6 Hypokalemia; B96.20 Unspecified Escherichia coli [E. coli] as the cause of diseases classified elsewhere; F03.90 Unspecified dementia, unspecified severity, without behavioral disturbance, psychotic disturbance, mood disturbance, and anxiety; G43.909 Migraine, unspecified, not intractable, without status migrainosus; I10 Essential (primary) hypertension; I48.0 Paroxysmal atrial fibrillation; K21.9 Gastro-esophageal reflux disease without esophagitis; M19.90 Unspecified osteoarthritis, unspecified site; R79.89 Other specified abnormal findings of blood chemistry; Z98.84 Bariatric surgery status; Z79.899 Other long term (current) drug therapy; Z98.82 Breast implant status; Z85.3 Personal history of malignant neoplasm of breast
CPT/HCPCS: 36415; 36569; 36600; 70450; 70551; 71045; 74018; 74176; 76937; 78452; 80048; 80053; 80061; 80069; 80202; 80305; 80320; 81001; 82140; 82150; 82272; 82330; 82607; 82746; 82803; 82948; 83540; 83550; 83605; 83690; 83735; 84100; 84132; 84134; 84145; 84484; 85018; 85025; 85610; 85730; 87040; 87070; 87077; 87088; 87186; 87324; 87449; 93005; 93017; 93306; 94760; 96361; 96365; 96375; 97116; 97161; 97530; 99291; A4649; A6213; A6250; A9500; J0692; J0885; J1644; J1650; J1956; J2060; J2270; J2310; J3370; J3480; J3490; J7030; J7042; J7060; J7070